=== PATIENT | male | born 1990 | race Hispanic/Latino ===

== ENCOUNTER 2018-10-30 08:15 | Outpatient (CLI) | payer BC ==
--- NOTE | 2018-10-30 09:11 | ULT ---
US Gallbladder RUQ History: Right upper quadrant pain Comparison: None. Findings: Real-time grayscale and color evaluation of the right upper quadrant was obtained. Vicious portion of the aorta, IVC, and pancreas are unremarkable. Hepatic echotexture is normal. No mass. Liver measures 15.2 cm in length. Portal vein is patent with antegrade flow. Right kidney measures 10.8 x 3.4 x 4.5 cm without mass, hydronephrosis, or abnormal calcifications. G allbladder is normal. No pericholecystic fluid. Common bile duct is normal. Impression: Normal examination.
== END 2018-10-30 08:16 | disposition home or self-care (01) ==
LOC: SCSULT 08:15
PROVIDERS: ATTEND Family Medicine
DX: R10.11 Right upper quadrant pain (principal)
CPT/HCPCS: 76705

== ENCOUNTER 2018-11-19 08:26 | Outpatient (CLI) | payer BC ==
--- NOTE | 2018-11-19 12:01 | NM ---
HEPATOBILIARY SCAN: HISTORY:Right upper quadrant pain RADIOPHARMACEUTICAL: 5 mCi Technetium 99m Mebrofenin injected intravenously FINDINGS: There is normal tracer extraction by the liver with normal excretion into the biliary tracts and smal l bowel loops and normal filling of the gallbladder. The calculated gallbladder ejection fraction following an oral fatty meal measures 52%. IMPRESSION:Normal exam.
== END 2018-11-19 08:27 | disposition home or self-care (01) ==
LOC: NM 08:26
PROVIDERS: ATTEND Family Medicine
DX: R10.11 Right upper quadrant pain (principal)
CPT/HCPCS: 78227; A9537